=== PATIENT | female | born 1945 | race Caucasian/White ===

== ENCOUNTER 2020-05-05 07:51 | Outpatient (REF) | payer OTHER, SELFPAY | END 2020-05-05 07:52 | disposition home or self-care (01) | LOC: HO.LAB 07:51 | PROVIDERS: Visit Provider Internal Medicine | DX: Z20.828 Contact with and (suspected) exposure to other viral communicable diseases (principal) | CPT/HCPCS: C9803; U0003 ==

== ENCOUNTER → 2020-05-10 13:05 | Outpatient (BNVA) | payer OTHER, SELFPAY | PROVIDERS: PCP Internal Medicine; Referring Provider Internal Medicine; Visit Provider Internal Medicine Gastroenterology | DX: Z76.89 Persons encountering health services in other specified circumstances (principal) ==

== ENCOUNTER 2020-06-05 11:13 | Outpatient (REF) | payer OTHER, SELFPAY | END 2020-06-05 11:14 | disposition home or self-care (01) | LOC: HO.LAB 11:13 | PROVIDERS: Visit Provider Internal Medicine | DX: Z20.822 Contact with and (suspected) exposure to COVID-19 (principal) | CPT/HCPCS: 36415; C9803; U0003 ==

== ENCOUNTER → 2020-08-16 14:12 | Outpatient (BNVA) | payer OTHER, SELFPAY | PROVIDERS: PCP Internal Medicine; Visit Provider Internal Medicine Gastroenterology ==

== ENCOUNTER 2020-12-26 08:44 | Outpatient (REF) | payer OTHER, SELFPAY ==
[2020-12-26 11:52] LABS: Hematocrit 40.3 % (37-47); Hemoglobin 12.8 g/dl (12.0-16.0); Mean Corpuscular HGB Conc 31.8 g/dl (31.0-35.0); Mean Corpuscular Hemoglobin 27.6 pg (27.0-33.0); Mean Corpuscular Volume 86.9 fL (80-98); Mean Platelet Volume 9.8 fL (9.4-12.3); Platelet Count 226 X10*3/uL (160-400); Red Blood Count 4.64 X10*6/uL (4.20-5.50); Red Cell Distribution Width 13.6 % (11.0-16.0); White Blood Count 6.1 X10*3/uL (4.8-10.8)
[2020-12-26 12:14] LABS: Alanine Aminotransferase 10 U/L (0-31); Albumin Level 4.4 g/dL (3.5-5.0); Alkaline Phosphatase 89 U/L (39-117); Anion Gap 14 (12-20); Aspartate Amino Transferase 16 U/L (5-31); Bilirubin Total 0.3 mg/dL (0.0-1.0); Blood Urea Nitrogen 11 mg/dL (9-16); C Reactive Protein 0.08 mg/dL (< or = 0.50); Calcium 9.7 mg/dL (8.4-10.2); Carbon Dioxide 27 mmol/L (22-29); Chloride 105 mmol/L (96-108); Estimated Glomerular Filt Rate > 60; Glucose Random 120 mg/dL (60-115); Sodium 142 mmol/L (135-145); Total Protein 6.9 g/dL (6.5-8.0)
[2020-12-26 12:21] LABS: TSH reflex Free T4 0.49 uIU/mL (0.32-4.0)
[2020-12-26 12:57] LABS: Glucose Urine UA NEG (NEG); Leukocyte Esterase Urine TRACE (NEG); Nitrite Urine NEG (NEG); PH 5.5 (5.0-8.0); Specific Gravity - Urine 1.015 (1.005-1.025); UACC Culture Trigger YES; Urine Blood NEG (NEG); Urine Ketones NEG (NEG); Urine Protein NEG (NEG-TRACE)
[2020-12-26 12:59] LABS: Appearance Urine CLEAR; Color Urine YELLOW
[2020-12-26 13:18] LABS: RBC Urine 0 /HPF (0)
[2020-12-26 13:19] LABS: Squamous Epithelial Cell Urine 1+ /LPF; WBC Clumps Urine NOTED
[2021-01-02 13:56] LABS: Transglutaminase Ab IgG 1 U/mL; Transglutaminase IgA 1 U/mL
== END 2020-12-26 08:45 | disposition home or self-care (01) ==
LOC: HO.LAB 08:44
PROVIDERS: PCP Internal Medicine; Referring Provider Internal Medicine; Visit Provider Nurse Practitioner Family
DX: K58.9 Irritable bowel syndrome, unspecified (principal); R35.0 Frequency of micturition; R30.0 Dysuria
CPT/HCPCS: 36415; 80053; 81001; 81003; 83516; 84443; 85027; 86140; 87086

== ENCOUNTER → 2021-01-31 09:18 | Outpatient (BNVA) | payer OTHER, SELFPAY | PROVIDERS: PCP Internal Medicine; Referring Provider Internal Medicine; Visit Provider Nurse Practitioner Family ==

== ENCOUNTER → 2021-04-03 12:47 | Outpatient (BNVA) | payer OTHER, SELFPAY | PROVIDERS: PCP Internal Medicine; Referring Provider Internal Medicine; Visit Provider Nurse Practitioner Family ==

== ENCOUNTER 2021-04-24 10:24 | Day surgery (SDC) | payer OTHER, SELFPAY ==
[2021-04-19 09:41] VITALS: BMI 20.9
--- NOTE | 2021-04-23 13:09 | P.CONAN_ITS ---
Documented by User: Aylin Roberson NP 04/23/21 13:10 HPI - Anesthesia Eval Consult details Narrative: 76yo F for Colonoscopy Multiple Allergies PMFSH Active Problems Active Problems: All Active Problems (Updated 04/19/21 @ 09:38 by Janene Wilder, RN) Diabetes 1.5, managed as type 2 (Acute) IBS (irritable colon syndrome) (Acute) GERD (gastroesophageal reflux disease) (Acute) Past Medical History Medical History Anxiety Diabetes 1.5, managed as type 2 GERD (gastroesophageal reflux disease) Hx of renal calculi Hypothyroid IBS (irritable colon syndrome) PONV (postoperative nausea and vomiting) Family History Family History Father Hx of tuberculosis Mother No problems noted. Daughter Colon adenocarcinoma Surgical History Surgical History History of colonoscopy History of esophagogastroduodenoscopy (EGD) History of hysterectomy Hx of cystoscopy Hx of lithotripsy Social History Social History Household Members: Spouse Alcohol intake: never Patient Tobacco Use Status: Never used Tobacco Are you DNR?: No Advance Directives: No Advance Directives Information Provided: Yes Advance Directives on File: No Meds Allergies Allergy/AdvReac Type Severity Reaction Status Date / Time azithromycin [AZITHROMYCIN] Allergy Severe THROAT Verified 04/03/21 12:58 SWELLS codeine [Codeine] Allergy Severe THROAT Verified 04/03/21 12:58 SWELLS,RASH morphine [Morphine] Allergy Severe throat Verified 04/03/21 12:58 swelling,VOMITING nitrofurantoin Allergy Severe THROAT Verified 04/03/21 12:58 [NITROFURANTOIN] SWELLS Penicillins Allergy Severe THROAT Verified 04/03/21 12:58 SWELLS,RASH sulfamethoxazole Allergy Severe THROAT Verified 04/03/21 12:58 [From Bactrim] SWELLS,RASH trimethoprim [From Bactrim] Allergy Severe THROAT Verified 04/03/21 12:58 SWELLS,RASH celecoxib [From Celebrex] Allergy Mild RASH Verified 04/03/21 12:58 Sulfa (Sulfonamide Allergy Mild RASH Verified 04/03/21 12:58 Antibiotics) [Sulfa (Sulfonamides)] amoxicillin [Amoxicillin] Allergy Unknown RASH Verified 04/03/21 12:58 atorvastatin [From Lipitor] Allergy Unknown RASH Verified 04/03/21 12:58 erythromycin base Allergy Unknown RASH Verified 04/03/21 12:58 [From E.E.S. 400] fluticasone [FLUTICASONE] Allergy Unknown BLOOD IN Verified 04/03/21 12:58 EYES levofloxacin [LEVOFLOXACIN] Allergy Unknown HYPOGLYCEMIA, Verified 04/03/21 12:58 drop blood sugars oxycodone [From PERCOCET] Allergy Unknown RASH Verified 04/03/21 12:58 monosodium glutamate [MSG] Allergy throat Verified 04/19/21 09:36 swelling meperidine [From Demerol] AdvReac Mild VOMITING Verified 04/03/21 12:58 citalopram [CITALOPRAM] AdvReac Unknown SHAKING,HYP Verified 04/03/21 12:58 OGLYCEMIA ibuprofen [IBUPROFEN] AdvReac Unknown GI UPSET Verified 04/03/21 12:58 JALAPENO PEPPERS Allergy Severe THROAT Uncoded 04/03/21 12:58 SWELLS Shellfish Allergy Severe THROAT Uncoded 04/03/21 12:58 SWELLS Home Medications Medication Instructions Recorded Confirmed Last Taken Type docusate sodium 100 mg capsule 100 mg PO DAILY 05/11/20 04/19/21 Unknown History lorazepam 0.5 mg tablet 0.5 mg PO BID PRN 05/11/20 04/19/21 Unknown History metformin 500 mg tablet 500 mg PO BID 05/11/20 04/19/21 Unknown History pravastatin 40 mg tablet 40 mg PO BEDTIME 05/11/20 04/19/21 Unknown History levothyroxine 50 mcg tablet 50 mcg PO DAILY 01/31/21 04/19/21 Unknown History paroxetine HCl 10 mg tablet 10 mg PO DAILY 01/31/21 04/19/21 Unknown History latanoprost 0.005 % eye drops 1 drp OPHTHALMIC (EYE) BEDTIME 04/03/21 04/19/21 U nknown History famotidine 40 mg tablet 20 mg PO DAILY 04/19/21 04/19/21 Unknown History Exam Exam Date and Time: April 23, 2021 1309 Height,Weight and Vital Signs: Height 4 ft 10 in Weight 45.359 kg Pertinent Lab Results Pertinent Lab Results: Laboratory Tests 12/26/20 12/26/20 10:36 10:36 WBC 6.1 Hgb 12.8 Hct 40.3 Plt Count 226 Sodium 142 Potassium 4.0 Chloride 105 Carbon Dioxide 27 BUN 11 Creatinine 0.61 Assessment and Plan Assessment Anesthesia Assessment: Chart Reviewed Documented by User: Akash Dodd MD 04/24/21 12:25 PMFSH Past Medical History Medical History Anxiety Diabetes 1.5, managed as type 2 GERD (gastroesophageal reflux disease) Hx of renal calculi Hypothyroid IBS (irritable colon syndrome) PONV (postoperative nausea and vomiting) Family History Family History Father Hx of tuberculosis Mother No problems noted. Daughter Colon adenocarcinoma Family history of problems with anesthesia: No Surgical History Surgical History History of colonoscopy History of esophagogastroduodenoscopy (EGD) History of hysterectomy Hx of cystoscopy Hx of lithotripsy History of Problems with Anesthesia: No Social History Social History Household Members: Spouse Alcohol intake: never Patient Tobacco Use Status: Never used Tobacco Are you DNR?: No Advance Directives: No Advance Directives Information Provided: Yes Advance Directives on File: No Meds Allergies Allergy/AdvReac Type Severity Reaction Status Date / Time azithromycin [AZITHROMYCIN] Allergy Severe THROAT Verified 04/03/21 12:58 SWELLS codeine [Codeine] Allergy Severe THROAT Verified 04/03/21 12:58 SWELLS,RASH morphine [Morphine] Allergy Severe throat Verified 04/03/21 12:58 swelling,VOMITING nitrofurantoin Allergy Severe THROAT Verified 04/03/21 12:58 [NITROFURANTOIN] SWELLS Penicillins Allergy Severe THROAT Verified 04/03/21 12:58 SWELLS,RASH sulfamethoxazole Allergy Severe THROAT Verified 04/03/21 12:58 [From Bactrim] SWELLS,RASH trimethoprim [From Bactrim] Allergy Severe THROAT Verified 04/03/21 12:58 SWELLS,RASH celecoxib [From Celebrex] Allergy Mild RASH Verified 04/03/21 12:58 Sulfa (Sulfonamide Allergy Mild RASH Verified 04/03/21 12:58 Antibiotics) [Sulfa (Sulfonamides)] amoxicillin [Amoxicillin] Allergy Unknown RASH Verified 04/03/21 12:58 atorvastatin [From Lipitor] Allergy Unknown RASH Verified 04/03/21 12:58 erythromycin base Allergy Unknown RASH Verified 04/03/21 12:58 [From E.E.S. 400] fluticasone [FLUTICASONE] Allergy Unknown BLOOD IN Verified 04/03/21 12:58 EYES levofloxacin [LEVOFLOXACIN] Allergy Unknown HYPOGLYCEMIA, Verified 04/03/21 12:58 drop blood sugars oxycodone [From PERCOCET] Allergy Unknown RASH Verified 04/03/21 12:58 monosodium glutamate [MSG] Allergy throat Verified 04/19/21 09:36 swelling meperidine [From Demerol] AdvReac Mild VOMITING Verified 04/03/21 12:58 citalopram [CITALOPRAM] AdvReac Unknown SHAKING,HYP Verified 04/03/21 12:58 OGLYCEMIA ibuprofen [IBUPROFEN] AdvReac Unknown GI UPSET Verified 04/03/21 12:58 JALAPENO PEPPERS Allergy Severe THROAT Uncoded 04/03/21 12:58 SWELLS Shellfish Allergy Severe THROAT Uncoded 04/03/21 12:58 SWELLS Home Medications Medication Instructions Recorded Confirmed Last Taken Type docusate sodium 100 mg capsule 100 mg PO DAILY 05/11/20 04/19/21 Unknown History lorazepam 0.5 mg tablet 0.5 mg PO BID PRN 05/11/20 04/19/21 Unknown History metformin 500 mg tablet 500 mg PO BID 05/11/20 04/19/21 Unknown History pravastatin 40 mg tablet 40 mg PO BEDTIME 05/11/20 04/19/21 Unknown History levothyroxine 50 mcg tablet 50 mcg PO DAILY 01/31/21 04/19/21 Unknown History paroxetine HCl 10 mg tablet 10 mg PO DAILY 01/31/21 04/19/21 Unknown History latanoprost 0.005 % eye drops 1 drp OPHTHALMIC (EYE) BEDTIME 04/03/21 04/19/21 Unknown History famotidine 40 mg tablet 20 mg PO DAILY 04/19/21 04/19/21 Unknown History Exam Airway Mallampati Class: I TM Dist: >3cm Neck ROM: Full Partial: Upper and Lower Assessment and Plan Assessment Anesthesia Assessment: Anesthesia Plan Discussed Final Anesthetic Review Family History of Problems with Anesthesia: No History of Problems with Anesthesia: No NPO: Yes ASA Class: II Final Preanesthetic Review: No Changes in Pt Med Stat, Meds/Allgs Chart Reviewed, Consent Obtained/Reviewed and Anes Risks/Benef Reviewed Patient Risk: Low Procedure Risk: Low Anesthetic Plan Anesthetic Plan: MAC: Disposition: Standard PACU
[2021-04-24 11:59] VITALS: BP 149/53; PULSE 75; RESP 16; TEMP 36.3; O2SAT 99
[2021-04-24] MEDS: Lactated Ringers 1,000 ML 100 ML IVCONT (12:10)
[2021-04-24 12:14] LABS: Glucose, Whole Blood 133 mg/dL (60-115)
--- NOTE | 2021-04-24 12:57 | MHC.SHP ---
Pre-Procedural Eval Section A Date of Service: 04/24/21 The patient is an INPATIENT: No Changes since office visit: Yes Patient answered all questions; No Cold of Flu in the past 2 weeks, No New Medical Problems and No Changes in Medication The History & Physical has been completed within 30 days and I have reviewed it.: Yes Section B Chief Complaint: colon cancer Screening Details of Present Illness: Colon cancer screening, family history of colon cancer Allergies: Allergies Allergy/AdvReac Type Severity Reaction Status Date / Time azithromycin [AZITHROMYCIN] Allergy Severe THROAT Verified 04/03/21 12:58 SWELLS codeine [Codeine] Allergy Severe THROAT Verified 04/03/21 12:58 SWELLS,RASH morphine [Morphine] Allergy Severe throat Verified 04/03/21 12:58 swelling,VOMITING nitrofurantoin Allergy Severe THROAT Verified 04/03/21 12:58 [NITROFURANTOIN] SWELLS Penicillins Allergy Severe THROAT Verified 04/03/21 12:58 SWELLS,RASH sulfamethoxazole Allergy Severe THROAT Verified 04/03/21 12:58 [From Bactrim] SWELLS,RASH trimethoprim [From Bactrim] Allergy Severe THROAT Verified 04/03/21 12:58 SWELLS,RASH celecoxib [From Celebrex] Allergy Mild RASH Verified 04/03/21 12:58 Sulfa (Sulfonamide Allergy Mild RASH Verified 04/03/21 12:58 Antibiotics) [Sulfa (Sulfonamides)] amoxicillin [Amoxicillin] Allergy Unknown RASH Verified 04/03/21 12:58 atorvastatin [From Lipitor] Allergy Unknown RASH Verified 04/03/21 12:58 erythromycin base Allergy Unknown RASH Verified 04/03/21 12:58 [From E.E.S. 400] fluticasone [FLUTICASONE] Allergy Unknown BLOOD IN Verified 04/03/21 12:58 EYES levofloxacin [LEVOFLOXACIN] Allergy Unknown HYPOGLYCEMIA, Verified 04/03/21 12:58 drop blood sugars oxycodone [From PERCOCET] Allergy Unknown RASH Verified 04/03/21 12:58 monosodium glutamate [MSG] Allergy throat Verified 04/19/21 09:36 swelling meperidine [From Demerol] AdvReac Mild VOMITING Verified 04/03/21 12:58 citalopram [CITALOPRAM] AdvReac Unknown SHAKING,HYP Verified 04/03/21 12:58 OGLYCEMIA ibuprofen [IBUPROFEN] AdvReac Unknown GI UPSET Verified 04/03/21 12:58 JALAPENO PEPPERS Allergy Severe THROAT Uncoded 04/03/21 12:58 SWELLS Shellfish Allergy Severe THROAT Uncoded 04/03/21 12:58 NAYANLLS Plan I have reviewed the history and physical and performed a pertinent physical examination on my patient. No changes have occurred unless specified.
--- NOTE | 2021-04-24 12:58 | P.OP_ITS ---
Operative Note Operative Note Date of Service: 04/24/21 Narrative: Pre-op diagnosis:?Colon cancer screening, hx of colon polyps, family history of colon cancer (daughter in her late 40's) Post-op diagnosis:?other (Colon polyps, diverticulosis) Procedure:? COLONOSCOPY TILL CECUM WITH BIOPSIES, SNARE POLYTPECTOMY, SUBMUCOSAL INJECTION AND HEMOCLIP PLACEMENT Consent: Indications for the procedure and potential complications of bleeding, perforation, reaction to medications and missed diagnosis were discussed with the patient and informed consent was obtained. Instrument: Olympus PCF H 190 L variable stiffness pediatric colonoscope Monitoring: Vital signs and clinical assessment, intermittent blood pressure monitoring, continuous EKG monitoring, Pulse oximetry and Carbon Dioxide monitoring were done throughout the procedure. Colon withdrawl time was? 33 minutes. Procedure: The patient was placed in the left lateral decubitis position and pre-procedure medications were administered. After a digital rectal examination of the ano-rectum, the video colonoscope was inserted into the rectum and advanced through the colon to the cecum. The colonoscope was slowly withdrawn in a retrograde panoramic fashion and the colon mucosa was carefully examined including a retroflexed view of the rectum. Findings and interventions are described below. Procedure Difficulty: Without difficulty Findings: Terminal Ileum: Not evaluated Cecum:? A 4-5 mm sessile polyp adjacent to appendicular orifice removed with a cold bx. A 3 cms sessile polyp in the cecum adjacent to the ICV raised with 3 cc of Orise solution and removed with a hot snare.? Polypectomy site was closed with resolution clip. Ascending Colon:? Normal Transverse Colon:? A 15 mm sessile polyp at 50 cms (at site of a tattoo) removed with a hot snare. Descending Colon:? Moderate diverticulosis Sigmoid Colon:? A 10 -12 mm sessile polyp with central ulceration removed with a hot snare. Moderate diverticulosis Rectum:? Normal Ano-rectum:? Normal Colon preparation:? Good after copious irrigation Impression and Post Procedure Diagnosis: Colonoscopy Findings: One large, two medium sized and one small polyps removed Moderate diverticulosis seen in the left colon Plan: Await pathology results Patient has an appointment on 05/09/21 in the [facility] with ? Daphne St FNP-BC . Repeat Colonoscopy interval based on path results - in 6 months to check polypectomy site in the cecum if polyps are adenomatous. Above findings were reviewed with the patient and colon polyps and diverticulosis handouts were given in the discharge area Surgeon:?Radha Rain MD Anesthesia:?MAC (Wendy Wyatt CRNA) Was an Clinical Application Specialist used for this Procedure?:?Yes Clinical Application Specialist:?Carole Turpin Estimated blood loss (mL):?0 Pathology:?other ( A. CECAL POLYP ? ORISE USED? B. CECAL POLYP #2? C. TRANSVERSE COLON POLYP AT 50 CM? D. SIGMOID COLON POLYP) Condition:?stable Disposition:?PACU
[2021-04-24 14:52] VITALS: BP 96/42; PULSE 56; RESP 16; TEMP 36.4; O2SAT 98
[2021-04-24 15:07] VITALS: BP 148/61; PULSE 70; RESP 16; TEMP 36.4; O2SAT 100
== END 2021-04-24 16:25 | disposition home or self-care (01) ==
PROVIDERS: PCP Internal Medicine; Visit Provider Internal Medicine Gastroenterology
PROC: 0DJD8ZZ Inspection of Lower Intestinal Tract, Via Natural or Artificial Opening Endoscopic (ICD-10-PCS; CPT 45378; principal; 2021-04-24 12:10)
DX: Z12.11 Encounter for screening for malignant neoplasm of colon (principal); Z86.010 Personal history of colon polyps; Z80.0 Family history of malignant neoplasm of digestive organs; D12.0 Benign neoplasm of cecum; D12.3 Benign neoplasm of transverse colon; K63.5 Polyp of colon; K57.30 Diverticulosis of large intestine without perforation or abscess without bleeding; K58.9 Irritable bowel syndrome, unspecified; K21.9 Gastro-esophageal reflux disease without esophagitis; E13.9 Other specified diabetes mellitus without complications; Z79.84 Long term (current) use of oral hypoglycemic drugs; Z88.0 Allergy status to penicillin; Z88.1 Allergy status to other antibiotic agents; Z88.2 Allergy status to sulfonamides; Z88.8 Allergy status to other drugs, medicaments and biological substances; Z87.442 Personal history of urinary calculi
CPT/HCPCS: 45385; 45380; 45381; 82947; 88305

== ENCOUNTER → 2021-05-09 10:13 | Outpatient (BNVA) | payer OTHER, SELFPAY | PROVIDERS: PCP Internal Medicine; Referring Provider Internal Medicine; Visit Provider Nurse Practitioner Family ==

== ENCOUNTER → 2021-09-04 10:41 | Outpatient (BNVA) | payer BC, SELFPAY | PROVIDERS: PCP Internal Medicine; Visit Provider Nurse Practitioner Family | DX: Z13.89 Encounter for screening for other disorder (principal) ==

== ENCOUNTER 2021-11-23 09:18 | Day surgery (SDC) | payer MEDICARE, SELFPAY ==
[2021-11-16 10:34] VITALS: BMI 21.5
--- NOTE | 2021-11-22 13:38 | HO.ANESPROP2 ---
Documented by User: Aylin Roberson NP 11/22/21 13:39 HPI - Anesthesia Eval Consult details Narrative: 76yo F for Colonoscopy Multiple Allergies s/p colo 04/2021 with MAC PMFSH Active Problems Active Problems: All Active Problems (Updated 04/19/21 @ 09:38 by Janene Wilder, ARIELLE) GERD (gastroesophageal reflux disease) (Acute) IBS (irritable colon syndrome) (Acute) Diabetes 1.5, managed as type 2 (Acute) Past Medical History Medical History Anxiety Hx of renal calculi Hypothyroid PONV (postoperative nausea and vomiting) Family History Family History Father Hx of tuberculosis Mother No problems noted. Daughter Colon adenocarcinoma Family history of problems with anesthesia: No Surgical History Surgical History (Updated 11/16/21 @ 10:24 by Angela Samayoa RN) History of colonoscopy History of esophagogastroduodenoscopy (EGD) History of hysterectomy Hx of cystoscopy Hx of lithotripsy History of Problems with Anesthesia: No Social History Social History Household Members: Spouse Alcohol intake: never Patient Tobacco Use Status: Never used Tobacco Use of substances other than those prescribed or required for medical reasons: No Have you been hit, kicked, punched, or otherwise hurt by someone within the past year? If so, by whom?: No Are you DNR?: No Advance Directives: No Advance Directives Information Provided: Yes Recently lost weight without trying: No Nutrition Risks: No Nutritional Risk Patient : No Meds Allergies Allergy/AdvReac Type Severity Reaction Status Date / Time azithromycin [AZITHROMYCIN] Allergy Severe THROAT Verified 09/04/21 10:50 SWELLS codeine [Codeine] Allergy Severe THROAT Verified 09/04/21 10:50 SWELLS,RASH monosodium glutamate [MSG] Allergy Severe throat Verified 11/16/21 10:28 swelling morphine [Morphine] Allergy Severe throat Verified 09/04/21 10:50 swelling,VOMITING nitrofurantoin Allergy Severe THROAT Verified 09/04/21 10:50 [NITROFURANTOIN] SWELLS Penicillins Allergy Severe THROAT Verified 09/04/21 10:50 SWELLS,RASH sulfamethoxazole Allergy Severe THROAT Verified 09/04/21 10:50 [From Bactrim] SWELLS,RASH trimethoprim [From Bactrim] Allergy Severe THROAT Verified 09/04/21 10:50 SWELLS,RASH fluticasone [FLUTICASONE] Allergy Intermediate BLOOD IN Verified 11/16/21 10:28 EYES levofloxacin [LEVOFLOXACIN] Allergy Intermediate HYPOGLYCEMIA, Verified 11/16/21 10:28 drop blood sugars amoxicillin [Amoxicillin] Allergy Mild RASH Verified 11/16/21 10:28 atorvastatin [From Lipitor] Allergy Mild RASH Verified 11/16/21 10:28 celecoxib [From Celebrex] Allergy Mild RASH Verified 09/04/21 10:50 erythromycin base Allergy Mild RASH Verified 11/16/21 10:28 [From E.E.S. 400] oxycodone [From PERCOCET] Allergy Mild RASH Verified 11/16/21 10:28 Sulfa (Sulfonamide Allergy Mild RASH Verified 09/04/21 10:50 Antibiotics) [Sulfa (Sulfonamides)] citalopram [CITALOPRAM] AdvReac Intermediate SHAKING,HYP Verified 11/16/21 10:28 OGLYCEMIA ibuprofen [IBUPROFEN] AdvReac Intermediate GI UPSET Verified 11/16/21 10:28 meperidine [From Demerol] AdvReac Mild VOMITING Verified 09/04/21 10:50 JALAPENO PEPPERS Allergy Severe THROAT Uncoded 09/04/21 10:50 SWELLS Shellfish Allergy Severe THROAT Uncoded 09/04/21 10:50 SWELLS Home Medications Medication Instructions Recorded Confirmed Last Taken Type docusate sodium 100 mg capsule 100 mg PO DAILY 05/11/20 04/19/21 Unknown History lorazepam 0.5 mg tablet 0.5 mg PO BID PRN Anxiety 05/11/20 04/19/21 Unknown History metformin 500 mg tablet 500 mg PO BID 05/11/20 04/19/21 Unknown History pravastatin 40 mg tablet 40 mg PO BEDTIME 05/11/20 04/19/21 Unknown History levothyroxine 50 mcg tablet 50 mcg PO DAILY 01/31/21 04/19/21 Unknown History paroxetine HCl 10 mg tablet 10 mg PO DAILY 01/31/21 04/19/21 Unknown History latanoprost 0.005 % eye drops 1 drp ophthalmic (eye) BEDTIME 04/03/21 04/19/21 Unknown History blood sugar diagnostic (Contour #10 ea 05/09/21 Unknown History Next Test Strips) paroxetine HCl 20 mg tablet 20 mg PO DAILY 09/04/21 Unknown History Exam Exam Date and Time: November 22, 2021 1338 Height,Weight and Vital Signs: Height 4 ft 10 in Weight 46.72 kg Assessment and Plan Assessment Anesthesia Assessment: Chart Reviewed Final Anesthetic Review Family History of Problems with Anesthesia: No History of Problems with Anesthesia: No Documented by User: Swapna Grewal MD 11/23/21 09:46 PMFSH Past Medical History Medical History Anxiety Hx of renal calculi Hypothyroid PONV (postoperative nausea and vomiting) Family History Family History Father Hx of tuberculosis Mother No problems noted. Daughter Colon adenocarcinoma Surgical History Surgical History (Updated 11/16/21 @ 10:24 by Angela Samayoa RN) History of colonoscopy History of esophagogastroduodenoscopy (EGD) History of hysterectomy Hx of cystoscopy Hx of lithotripsy Social History Social History Household Members: Spouse Alcohol intake: never Patient Tobacco Use Status: Never used Tobacco Use of substances other than those prescribed or required for medical reasons: No Have you been hit, kicked, punched, or otherwise hurt by someone within the past year? If so, by whom?: No Are you DNR?: No Advance Directives: No Advance Directives Information Provided: Yes Recently lost weight without trying: No Nutrition Risks: No Nutritional Risk Patient : No Meds Allergies Allergy/AdvReac Type Severity Reaction Status Date / Time azithromycin [AZITHROMYCIN] Allergy Severe THROAT Verified 09/04/21 10:50 SWELLS codeine [Codeine] Allergy Severe THROAT Verified 09/04/21 10:50 SWELLS,RASH monosodium glutamate [MSG] Allergy Severe throat Verified 11/16/21 10:28 swelling morphine [Morphine] Allergy Severe throat Verified 09/04/21 10:50 swelling,VOMITING nitrofurantoin Allergy Severe THROAT Verified 09/04/21 10:50 [NITROFURANTOIN] SWELLS Penicillins Allergy Severe THROAT Verified 09/04/21 10:50 SWELLS,RASH sulfamethoxazole Allergy Severe THROAT Verified 09/04/21 10:50 [From Bactrim] SWELLS,RASH trimethoprim [From Bactrim] Allergy Severe THROAT Verified 09/04/21 10:50 SWELLS,RASH fluticasone [FLUTICASONE] Allergy Intermediate BLOOD IN Verified 11/16/21 10:28 EYES levofloxacin [LEVOFLOXACIN] Allergy Intermediate HYPOGLYCEMIA, Verified 11/16/21 10:28 drop blood sugars amoxicillin [Amoxicillin] Allergy Mild RASH Verified 11/16/21 10:28 atorvastatin [From Lipitor] Allergy Mild RASH Verified 11/16/21 10:28 celecoxib [From Celebrex] Allergy Mild RASH Verified 09/04/21 10:50 erythromycin base Allergy Mild RASH Verified 11/16/21 10:28 [From E.E.S. 400] oxycodone [From PERCOCET] Allergy Mild RASH Verified 11/16/21 10:28 Sulfa (Sulfonamide Allergy Mild RASH Verified 09/04/21 10:50 Antibiotics) [Sulfa (Sulfonamides)] citalopram [CITALOPRAM] AdvReac Intermediate SHAKING,HYP Verified 11/16/21 10:28 OGLYCEMIA ibuprofen [IBUPROFEN] AdvReac Intermediate GI UPSET Verified 11/16/21 10:28 meperidine [From Demerol] AdvReac Mild VOMITING Verified 09/04/21 10:50 JALAPENO PEPPERS Allergy Severe THROAT Uncoded 09/04/21 10:50 SWELLS Shellfish Allergy Severe THROAT Uncoded 09/04/21 10:50 SWELLS Home Medications Medication Instructions Recorded Confirmed Last Taken Type docusate sodium 100 mg capsule 100 mg PO DAILY 05/11/20 04/19/21 Unknown History lorazepam 0.5 mg tablet 0.5 mg PO BID PRN Anxiety 05/11/20 04/19/21 Unknown History metformin 500 mg tablet 500 mg PO BID 05/11/20 04/19/21 Unknown History pravastatin 40 mg tablet 40 mg PO BEDTIME 05/11/20 04/19/21 Unknown History levothyroxine 50 mcg tablet 50 mcg PO DAILY 01/31/21 04/19/21 Unknown History paroxetine HCl 10 mg tablet 10 mg PO DAILY 01/31/21 04/19/21 Unknown History latanoprost 0.005 % eye drops 1 drp ophthalmic (eye) BEDTIME 04/03/21 04/19/21 Unknown History blood sugar diagnostic (Contour #10 ea 05/09/21 Unknown History Next Test Strips) paroxetine HCl 20 mg tablet 20 mg PO DAILY 09/04/21 Unknown History Exam Airway Mallampati Class: II TM Dist: >3cm Neck ROM: Full Partial: Upper Heart: rrr Lungs: cta Assessment and Plan Final Anesthetic Review NPO: Yes ASA Class: III Final Preanesthetic Review: No Changes in Pt Med Stat, Meds/Allgs Chart Reviewed and Consent Obtained/Reviewed Patient Risk: Intermediate Procedure Risk: Intermediate Anesthetic Plan Anesthetic Plan: MAC: Disposition: Standard PACU
[2021-11-23 09:39] VITALS: BP 125/46; PULSE 81; RESP 17; TEMP 36.5; O2SAT 97; BMI 21.5
[2021-11-23 09:40] LABS: Glucose, Whole Blood 136 mg/dL (60-115)
[2021-11-23] MEDS: Lactated Ringers 1,000 ML 100 ML IVCONT (09:45)
--- NOTE | 2021-11-23 09:58 | MHC.SHP ---
Pre-Procedural Eval Section A Date of Service: 11/23/21 The patient is an INPATIENT: No The History & Physical has been completed within 30 days and I have reviewed it.: No Section B Chief Complaint: Colon cancer screen, history of colon polyps Details of Present Illness: Colon cancer screening, history of colon polyps Relevant Family History (Specify if Yes): Yes Relevant Social History: None Present Medications: see Short Stay Collaborative assessment Medical History: Significant History (Anxiety Diabetes 1.5, managed as type 2 GERD (gastroesophageal reflux disease) Hx of renal calculi Hypothyroid IBS (irritable colon syndrome) PONV (postoperative nausea and vomiting)) History of Previous Operations: Relevant previous surgery/procedure and date(s) (History of colonoscopy History of esophagogastroduodenoscopy (EGD) History of hysterectomy Hx of cystoscopy Hx of lithotripsy) Allergies: Allergies Allergy/AdvReac Type Severity Reaction Status Date / Time azithromycin [AZITHROMYCIN] Allergy Severe THROAT Verified 09/04/21 10:50 SWELLS codeine [Codeine] Allergy Severe THROAT Verified 09/04/21 10:50 SWELLS,RASH monosodium glutamate [MSG] Allergy Severe throat Verified 11/16/21 10:28 swelling morphine [Morphine] Allergy Severe throat Verified 09/04/21 10:50 swelling,VOMITING nitrofurantoin Allergy Severe THROAT Verified 09/04/21 10:50 [NITROFURANTOIN] SWELLS Penicillins Allergy Severe THROAT Verified 09/04/21 10:50 SWELLS,RASH sulfamethoxazole Allergy Severe THROAT Verified 09/04/21 10:50 [From Bactrim] SWELLS,RASH trimethoprim [From Bactrim] Allergy Severe THROAT Verified 09/04/21 10:50 SWELLS,RASH fluticasone [FLUTICASONE] Allergy Intermediate BLOOD IN Verified 11/16/21 10:28 EYES levofloxacin [LEVOFLOXACIN] Allergy Intermediate HYPOGLYCEMIA, Verified 11/16/21 10:28 drop blood sugars amoxicillin [Amoxicillin] Allergy Mild RASH Verified 11/16/21 10:28 atorvastatin [From Lipitor] Allergy Mild RASH Verified 11/16/21 10:28 celecoxib [From Celebrex] Allergy Mild RASH Verified 09/04/21 10:50 erythromycin base Allergy Mild RASH Verified 11/16/21 10:28 [From E.E.S. 400] oxycodone [From PERCOCET] Allergy Mild RASH Verified 11/16/21 10:28 Sulfa (Sulfonamide Allergy Mild RASH Verified 09/04/21 10:50 Antibiotics) [Sulfa (Sulfonamides)] citalopram [CITALOPRAM] AdvReac Intermediate SHAKING,HYP Verified 11/16/21 10:28 OGLYCEMIA ibuprofen [IBUPROFEN] AdvReac Intermediate GI UPSET Verified 11/16/21 10:28 meperidine [From Demerol] AdvReac Mild VOMITING Verified 09/04/21 10:50 JALAPENO PEPPERS Allergy Severe THROAT Uncoded 09/04/21 10:50 SWELLS Shellfish Allergy Severe THROAT Uncoded 09/04/21 10:50 SWELLS Review of Systems Sugical H&P ROS: Negative: Constitution, Cardiovascular, Respiratory and Gastrointestinal Exam Surgical H&P Exam: Normal: Heart, Normal: Lungs, Normal: Extremities and Normal: Abdomen Plan Diagnosis/Plan: Unchanged I have reviewed the history and physical and performed a pertinent physical examination on my patient. No changes have occurred unless specified.
--- NOTE | 2021-11-23 09:59 | P.BOP_ITS ---
Brief Operative Note Date of Service: 11/23/21 Pre-op diagnosis: Colon cancer screening, history of colon polyps Post-op diagnosis: other (Colon polyps, diverticulosis, hemorrhoids) Procedure: COLONOSCOPY TILL CECUM WITH BIOPSIES Consent: Indications for the procedure and potential complications of bleeding, perforation, reaction to medications and missed diagnosis were discussed with the patient and informed consent was obtained. Instrument: Olympus PCF H 190 L variable stiffness pediatric colonoscope Monitoring: Vital signs and clinical assessment, intermittent blood pressure monitoring, continuous EKG monitoring, Pulse oximetry and Carbon Dioxide monitoring were done throughout the procedure. Colon withdrawl time was 21 minutes. Procedure: The patient was placed in the left lateral decubitis position and pre-procedure medications were administered. After a digital rectal examination of the ano-rectum, the video colonoscope was inserted into the rectum and advanced through the colon to the cecum. The colonoscope was slowly withdrawn in a retrograde panoramic fashion and the colon mucosa was carefully examined including a retroflexed view of the rectum. Findings and interventions are described below. Procedure Difficulty: Without difficulty Findings: Terminal Ileum: Not evaluated Cecum: Normal. No recurrent/residual polyp seen. Prominent ICV - biopsies were obtained from proximal and distal lips of ICV. Ascending Colon: Normal Transverse Colon: Polypectomy site examined at 50 cms (at site of a tattoo) and no residual/recurrent polyp seen - biopsies were obtained Descending Colon: Moderate diverticulosis Sigmoid Colon: Two 4-6 mm diminutive appearing polyps removed with a cold bx. Severe diverticulosis with luminal narrowing Rectum: Normal Ano-rectum: Moderate internal hemorrhoids Colon preparation: Good after some irrigation Impression and Post Procedure Diagnosis: Colonoscopy Findings: Two small polyps removed Moderate to severe diverticulosis seen in the left colon Moderate hemorrhoids on retroflexed exam. Plan: Await pathology results Patient has an appointment on 12/07/21 in the [facility] with Daphne St FNP- [facility]. Repeat Colonoscopy interval based on path results - in 3 years if biopsies are normal due to hx of adenomatous colon polyps. Above findings were reviewed with the patient and colon polyps and diverticulosis handouts were given in the discharge area Surgeon: Radha Rain MD Anesthesia: MAC (Dr Tinajero) Was an Controls Engineer used for this Procedure?: Yes Controls Engineer: Nishant Jaimes Estimated blood loss (mL): 0 Pathology: other ( A- DISTAL LIP ILEO CECAL VALVE BXS B- PROXIMAL LIP ILEO CECAL VALVE BXS C- COLON BXS AT 50CM R/O POLYP D- SIGMOID COLON POLYPS) Condition: stable Disposition: PACU
[2021-11-23 11:10] VITALS: BP 116/49; PULSE 72; RESP 16; TEMP 36.4; O2SAT 97
[2021-11-23 11:25] VITALS: BP 124/54; PULSE 69; RESP 16; TEMP 36.4; O2SAT 97
--- NOTE | 2021-11-23 18:02 | W.PM.OPN ---
Operative Note Operative Note Date of Service: 11/23/21 Narrative: Pre-op diagnosis: Colon cancer screening, history of colon polyps (to check polypectomy sites in the ascending and transverse colon) Post-op diagnosis:?other (Colon polyps, diverticulosis, hemorrhoids) Procedure: COLONOSCOPY TILL CECUM WITH BIOPSIES Consent: Indications for the procedure and potential complications of bleeding, perforation, reaction to medications and missed diagnosis were discussed with the patient and informed consent was obtained. Instrument: Olympus PCF H 190 L variable stiffness pediatric colonoscope Monitoring: Vital signs and clinical assessment, intermittent blood pressure monitoring, continuous EKG monitoring, Pulse oximetry and Carbon Dioxide monitoring were done throughout the procedure. Colon withdrawl time was 21 minutes. Procedure: The patient was placed in the left lateral decubitis position and pre-procedure medications were administered. After a digital rectal examination of the ano-rectum, the video colonoscope was inserted into the rectum and advanced through the colon to the cecum. The colonoscope was slowly withdrawn in a retrograde panoramic fashion and the colon mucosa was carefully examined including a retroflexed view of the rectum. Findings and interventions are described below. Procedure Difficulty: Without difficulty Findings: Terminal Ileum: Not evaluated Cecum:? Normal.? No recurrent/residual polyp seen.? Prominent ICV - biopsies were obtained from proximal and distal lips of ICV. Ascending Colon:? Normal Transverse Colon:? Polypectomy site examined at 50 cms (at site of a tattoo) and no residual/recurrent polyp seen - biopsies were obtained Descending Colon:? Moderate diverticulosis Sigmoid Colon:? ? Two 4-6 mm diminutive appearing polyps removed with a cold bx. Severe diverticulosis with luminal narrowing Rectum:? Normal Ano-rectum:? Moderate internal hemorrhoids Colon preparation:? Good after some irrigation Impression and Post Procedure Diagnosis: Colonoscopy Findings: Two small polyps removed Moderate to severe diverticulosis seen in the left colon Moderate hemorrhoids on retroflexed exam. Plan: Await pathology results Patient has an appointment on 12/07/21 in the GI Clinic with Daphne St FNP-[facility]. Repeat Colonoscopy interval based on path results - in 3 years if biopsies are normal due to hx of adenomatous colon polyps. Above findings were reviewed with the patient and colon polyps and diverticulosis handouts were given in the discharge area Surgeon: Radha Rain MD Anesthesia:?MAC (Dr Tinajero) Was an Dry Clipper Tender used for this Procedure?:?Yes Dry Clipper Tender:?Nishant Jaimes Estimated blood loss (mL):?0 Pathology:?other ( A- DISTAL LIP ILEO CECAL VALVE BXS? B- PROXIMAL LIP ILEO CECAL VALVE BXS? C- COLON BXS AT 50CM? R/O POLYP? D- SIGMOID COLON POLYPS) Condition:?stable Disposition:?PACU
== END 2021-11-23 11:58 | disposition home or self-care (01) ==
PROVIDERS: PCP Internal Medicine; Visit Provider Internal Medicine Gastroenterology
PROC: 0DJD8ZZ Inspection of Lower Intestinal Tract, Via Natural or Artificial Opening Endoscopic (ICD-10-PCS; CPT 45378; principal; 2021-11-23 10:20)
DX: K63.5 Polyp of colon (principal); Z86.010 Personal history of colon polyps; Z80.0 Family history of malignant neoplasm of digestive organs; K57.30 Diverticulosis of large intestine without perforation or abscess without bleeding; K64.8 Other hemorrhoids; K58.2 Mixed irritable bowel syndrome; K21.9 Gastro-esophageal reflux disease without esophagitis; F32.A Depression, unspecified; E03.9 Hypothyroidism, unspecified; E13.9 Other specified diabetes mellitus without complications; Z79.84 Long term (current) use of oral hypoglycemic drugs; Z88.0 Allergy status to penicillin; Z88.1 Allergy status to other antibiotic agents; Z88.2 Allergy status to sulfonamides; Z88.8 Allergy status to other drugs, medicaments and biological substances; Z87.442 Personal history of urinary calculi
CPT/HCPCS: 45380; 82947; 88305; J2250; J2405

== ENCOUNTER → 2021-12-07 09:58 | Outpatient (BNVA) | payer MEDICARE, SELFPAY | PROVIDERS: PCP Internal Medicine; Visit Provider Nurse Practitioner Family | DX: K59.01 Slow transit constipation (principal); K58.2 Mixed irritable bowel syndrome; K21.9 Gastro-esophageal reflux disease without esophagitis | CPT/HCPCS: 99212 ==

== ENCOUNTER → 2022-03-12 10:49 | Outpatient (BNVA) | payer MEDICARE, SELFPAY | PROVIDERS: PCP Internal Medicine; Referring Provider Internal Medicine; Visit Provider Nurse Practitioner Family | DX: K21.9 Gastro-esophageal reflux disease without esophagitis (principal); K58.2 Mixed irritable bowel syndrome | CPT/HCPCS: 99212 ==

== ENCOUNTER → 2022-10-09 11:38 | Outpatient (BNVA) | payer MEDICARE, SELFPAY | PROVIDERS: PCP Internal Medicine; Visit Provider Nurse Practitioner Family | DX: K21.9 Gastro-esophageal reflux disease without esophagitis (principal); K58.2 Mixed irritable bowel syndrome | CPT/HCPCS: 99212 ==

== ENCOUNTER 2023-05-23 11:01 | Outpatient (AMB) | payer MEDICARE, SELFPAY ==
[2023-05-23 11:09] VITALS: BP 134/62; PULSE 68; BMI 23.4
--- NOTE | 2023-05-23 11:09 | MHC.OFFVIS ---
Intake Vital Signs 05/23/23 11:09 Height 4 ft 10 in Weight 111 lb 15.917 oz BMI 23.4 BP 134/62 Blood Pressure Location Rt brachial Position Sitting Pulse 68 Pulse Source Pulse Oximeter Intake Visit Reasons: 6 month follow up Intake Note: Pt presents to the office today for a 6 month follow up. Pt states she is feeling okay. Pt states she hasnt had any issues with GERD lately and states she has had constipation this week but usually it is a lot better than before. Allergies azithromycin [AZITHROMYCIN] Allergy (Severe, Verified 05/23/23 11:11) THROAT SWELLS codeine [Codeine] Allergy (Severe, Verified 05/23/23 11:11) THROAT SWELLS,RASH monosodium glutamate [MSG] Allergy (Severe, Verified 05/23/23 11:11) throat swelling morphine [Morphine] Allergy (Severe, Verified 05/23/23 11:11) throat swelling,VOMITING nitrofurantoin [NITROFURANTOIN] Allergy (Severe, Verified 05/23/23 11:11) THROAT SWELLS Penicillins Allergy (Severe, Verified 05/23/23 11:11) THROAT SWELLS,RASH sulfamethoxazole [From Bactrim] Allergy (Severe, Verified 05/23/23 11:11) THROAT SWELLS,RASH trimethoprim [From Bactrim] Allergy (Severe, Verified 05/23/23 11:11) THROAT SWELLS,RASH fluticasone [FLUTICASONE] Allergy (Intermediate, Verified 05/23/23 11:11) BLOOD IN EYES levofloxacin [LEVOFLOXACIN] Allergy (Intermediate, Verified 05/23/23 11:11) HYPOGLYCEMIA, drop blood sugars amoxicillin [Amoxicillin] Allergy (Mild, Verified 05/23/23 11:11) RASH atorvastatin [From Lipitor] Allergy (Mild, Verified 05/23/23 11:11) RASH celecoxib [From Celebrex] Allergy (Mild, Verified 05/23/23 11:11) RASH erythromycin base [From E.E.S. 400] Allergy (Mild, Verified 05/23/23 11:11) RASH oxycodone [From PERCOCET] Allergy (Mild, Verified 05/23/23 11:11) RASH Sulfa (Sulfonamide Antibiotics) [Sulfa (Sulfonamides)] Allergy (Mild, Verified 05/23/23 11:11) RASH citalopram [CITALOPRAM] Adverse Reaction (Intermediate, Verified 05/23/23 11:11) SHAKING,HYPOGLYCEMIA ibuprofen [IBUPROFEN] Adverse Reaction (Intermediate, Verified 05/23/23 11:11) GI UPSET meperidine [From Demerol] Adverse Reaction (Mild, Verified 05/23/23 11:11) VOMITING JALAPENO PEPPERS Allergy (Severe, Uncoded 05/23/23 11:11) THROAT SWELLS Shellfish Allergy (Severe, Uncoded 05/23/23 11:11) THROAT SWELLS HPI 6 month follow up HPI Details LAST VISIT: GERD (gastroesophageal reflux disease) Continue with famotidine. Patient is aware to avoid dietary triggers. Patient does not eat late at night. Continue staying upright for minimum 3 hours after meals. Patient reports that her blood sugars are under control. No longer is taking insulin due to hypoglycemia. Patient states that her blood sugars have been between 110-120 in the morning. IBS (irritable colon syndrome) Continue elimination diet if necessary. Patient see to have a good routine about what foods she should and should not be to avoid her symptoms. She is moving her bowels without any issues. If that very have normalized. Moves her bowels every day. Patient reports that she only uses Colace if she needs to. Patient will be seeing her PCP sometimes next month. Please add vitamin-D level, B12 and folate to her labs if possible. Start taking vitamin D levels daily. Patient is not in the sun much even in the summer. I will see patient in 6 months, sooner on as needed basis. Patient is agreeable to this plan and verbalizes understanding of instructions. She was given the opportunity to ask questions and all questions answered. ? Thank you for allowing me to participate in her care Plan Medications New cholecalciferol (vitamin D3) 50 mcg PO DAILY 90 caps 3RF R79.89 - Other specified abnormal findings of blood chemistry TODAY'S VISIT: Patient is here today for follow-up. Patient is accompanied by her . Patient reports that she has been feeling well. Denies any GI concerning symptoms. States that peptic is controlling her he. Patient states that she has gained few lb from last visit. Patient has good appetite. Denies melena, hematochezia, unintentional weight loss or ribbon like stools. Patient denies any dyspepsia, dysphagia or odynophagia. Mild constipation last week, however reports that she is feeling better. Still taking Colace daily to help her move her bowels. [facility] Medical History PONV (postoperative nausea and vomiting) Anxiety Hx of renal calculi Diabetes 1.5, managed as type 2 Hypothyroid IBS (irritable colon syndrome) GERD (gastroesophageal reflux disease) Surgical History Hx of lithotripsy Hx of cystoscopy History of esophagogastroduodenoscopy (EGD) History of hysterectomy History of colonoscopy Family History Father Hx of tuberculosis Mother No problems noted. Daughter Colon adenocarcinoma Social History Household Members: Spouse Alcohol intake: never Patient Tobacco Use Status: Never used Tobacco Review of Systems Const Denies weight gain and Denies weight loss ENT Reports no additional complaints, Denies dysphagia and Denies odynophagia Card Reports no additional complaints Resp Reports no additional complaints GI Denies abdominal pain, Denies belching, Denies melena, Denies bloating, Denies change in bowel habits, Denies dysphagia, Denies excessive flatus, Denies dyspepsia, Denies heartburn, Denies diarrhea, Denies loose stools, Denies nausea, Denies odynophagia and Denies vomiting Musc Reports no additional complaints Neuro Reports no additional complaints Psych Reports no additional complaints Endo Reports no additional complaints Physical Exam Vital Signs: Last Vital Signs Pulse 68 05/23/23 11:09 BP 134/62 05/23/23 11:09 BMI result Body Mass Index 23.4 Const General: healthy appearing, no acute distress and well developed Nutritional Appearance: well nourished Orientation/consciousness: patient oriented x3 HEENT Head: Yes normal to inspection, Yes normocephalic and Yes atraumatic Face and sinus: Yes normal facial exam Mouth: Normal oral and palatal mucosa present Throat: Yes posterior oropharynx normal, Yes tonsils normal and Yes uvula midline Eyes General: appearance normal, both eyes and all related structures Neck Neck: Yes normal visual inspection, Yes full ROM and Yes trachea midline Thyroid: Thyroid normal Resp Effort & Inspection: normal respiratory effort, able to speak in complete sentences, no tracheal deviation and symmetric chest movement Auscultation: clear to auscultation bilaterally Cardio Rate: regular rate GI Inspection: Yes normal to inspection and No distended Palpation (GI): Soft to palpation, not firm, nontender and No hepatosplenomegaly present Auscultation: normal bowel sounds General: Yes no CVA tenderness Back/Spine/Pelvis Back: no CVA tenderness Skin General skin exam: elasticity normal, turgor normal and dry skin Neuro General: patient oriented x3 Psych Appearance: grossly normal Mental Status: mental status grossly normal Affect: normal affect Thought content: Normal thought content present Assessment & Plan Assessment & Plan (1) GERD (gastroesophageal reflux disease): Code(s): K21.9 - Gastro-esophageal reflux disease without esophagitis Qualifiers: Esophagitis presence: without esophagitis Qualified Code(s): K21.9 - Gastro-esophageal reflux disease without esophagitis (2) IBS (irritable colon syndrome): Code(s): K58.9 - Irritable bowel syndrome without diarrhea Qualifiers: Irritable bowel syndrome type: with both diarrhea and constipation Qualified Code(s): K58.2 - Mixed irritable bowel syndrome (3) Constipation: Code(s): K59.00 - Constipation, unspecified Qualifiers: Constipation type: slow transit constipation Qualified Code(s): K59.01 - Slow transit constipation Plan Patient will continue taking Pepcid daily. Discussed with patient avoiding dietary triggers and late night snacking. Staying upright for minimal 3 hours after meals discussed with patient. Colonoscopy will be due in October of 2024, sooner if clinically necessary. Patient denies any melena, hematochezia, unintentional weight loss or ribbon like stools. Continue taking Colace. Patient will return in the office in 6 months, sooner on as needed basis. Patient is agreeable to this plan and verbalizes understanding of instructions. She was given the opportunity to ask questions and all questions answered Thank you for allowing me to participate in her care Medications: Refilled docusate sodium 100 mg PO DAILY 90 caps 0RF K59.00 - Constipation, unspecified famotidine (Pepcid) 20 mg PO DAILY 90 tabs 3RF K21.9 - Gastro-esophageal reflux disease without esophagitis Coding Level of Care Code Est Pt Level 3 (36302) Diagnoses Gastroesophageal reflux disease without esophagitis K21.9 Esophagitis presence: without esophagitis Irritable bowel syndrome with both constipation and diarrhea K58.2 Irritable bowel syndrome type: with both diarrhea and constipation Slow transit constipation K59.01 Constipation type: slow transit constipation Time Spent (min) 25 Comment 15 minutes spent with patient and additional 10 minutes spent reviewing her records
== END 2023-05-23 11:44 | disposition home or self-care (01) ==
PROVIDERS: PCP Internal Medicine; Visit Provider Nurse Practitioner Family
DX: K21.9 Gastro-esophageal reflux disease without esophagitis (principal); K58.2 Mixed irritable bowel syndrome; K59.01 Slow transit constipation
CPT/HCPCS: 99213

== ENCOUNTER → 2023-05-23 11:01 | Outpatient (BNVA) | payer MEDICARE, SELFPAY | PROVIDERS: PCP Internal Medicine; Visit Provider Nurse Practitioner Family | DX: K21.9 Gastro-esophageal reflux disease without esophagitis (principal); K58.2 Mixed irritable bowel syndrome; K59.01 Slow transit constipation | CPT/HCPCS: 99212 ==

== ENCOUNTER 2023-10-06 11:10 | Outpatient (AMB) | payer MEDICARE, SELFPAY ==
--- NOTE | 2023-10-06 11:45 | A.OFFVIS_ITS ---
Vital Signs 10/06/23 11:46 Height 4 ft 10 in Weight 110 lb BMI 23.0 BP 119/69 Blood Pressure Location Lt brachial Position Sitting Pulse 71 Intake Visit Reasons: Diarrhea/Constipation Intake Note: Patient follow up for Diarrhea/Constipation. Patient cc: between diarrhea and Constipation, she went to the [facility] with a brain stroke. Also patient have an injury on her right arm and is waiting for ortho appt and is really painful. Denies any other GI issues. Field Radio Technician Required: No Accompanied by: Spouse Allergies azithromycin [AZITHROMYCIN] Allergy (Severe, Verified 10/06/23 11:44) THROAT SWELLS codeine [Codeine] Allergy (Severe, Verified 10/06/23 11:44) THROAT SWELLS,RASH monosodium glutamate [MSG] Allergy (Severe, Verified 10/06/23 11:44) throat swelling morphine [Morphine] Allergy (Severe, Verified 10/06/23 11:44) throat swelling,VOMITING nitrofurantoin [NITROFURANTOIN] Allergy (Severe, Verified 10/06/23 11:44) THROAT SWELLS Penicillins Allergy (Severe, Verified 10/06/23 11:44) THROAT SWELLS,RASH sulfamethoxazole [From Bactrim] Allergy (Severe, Verified 10/06/23 11:44) THROAT SWELLS,RASH trimethoprim [From Bactrim] Allergy (Severe, Verified 10/06/23 11:44) THROAT SWELLS,RASH fluticasone [FLUTICASONE] Allergy (Intermediate, Verified 10/06/23 11:44) BLOOD IN EYES levofloxacin [LEVOFLOXACIN] Allergy (Intermediate, Verified 10/06/23 11:44) HYPOGLYCEMIA, drop blood sugars amoxicillin [Amoxicillin] Allergy (Mild, Verified 10/06/23 11:44) RASH atorvastatin [From Lipitor] Allergy (Mild, Verified 10/06/23 11:44) RASH celecoxib [From Celebrex] Allergy (Mild, Verified 10/06/23 11:44) RASH erythromycin base [From E.E.S. 400] Allergy (Mild, Verified 10/06/23 11:44) RASH oxycodone [From PERCOCET] Allergy (Mild, Verified 10/06/23 11:44) RASH Sulfa (Sulfonamide Antibiotics) [Sulfa (Sulfonamides)] Allergy (Mild, Verified 10/06/23 11:44) RASH citalopram [CITALOPRAM] Adverse Reaction (Intermediate, Verified 10/06/23 11:44) SHAKING,HYPOGLYCEMIA ibuprofen [IBUPROFEN] Adverse Reaction (Intermediate, Verified 10/06/23 11:44) GI UPSET meperidine [From Demerol] Adverse Reaction (Mild, Verified 10/06/23 11:44) VOMITING JALAPENO PEPPERS Allergy (Severe, Uncoded 05/23/23 11:11) THROAT SWELLS Shellfish Allergy (Severe, Uncoded 05/23/23 11:11) THROAT SWELLS HPI HPI Diarrhea/Constipation: Details: LAST VISIT GERD (gastroesophageal reflux disease) IBS (irritable colon syndrome) Constipation Plan Patient will continue taking Pepcid daily. Discussed with patient avoiding dietary triggers and late night snacking. Staying upright for minimal 3 hours after meals discussed with patient. Colonoscopy will be due in October of 2024, sooner if clinically necessary. Patient denies any melena, hematochezia, unintentional weight loss or ribbon like stools. Continue taking Colace. Patient will return in the office in 6 months, sooner on as needed basis. Patient is agreeable to this plan and verbalizes understanding of instructions. She was given the opportunity to ask questions and all questions answered ? Thank you for allowing me to participate in her care Medications Refilled docusate sodium 100 mg PO DAILY 90 caps 0RF K59.00 famotidine (Pepcid) 20 mg PO DAILY 90 tabs 3RF K21.9 TODAY'S VISIT Patient is here today for follow-up. Patient is accompanied by her . Patient reports that couple months ago she had episode of TIA and was admitted to the hospital. Patient states that she was unable to speak appropriately when she was having conversation with her . He noticed that and call the daughter who then brought her to the hospital. Patient was admitted, CT scan of the head was done, patient was placed on clopidogrel and was discharged to [facility]. Patient did not want to go to rehab and ask her to bring her home. Ever since patient has been home, feeling well. Denies any abdominal pain or discomfort. Occasional constipation but then diarrhea depending on what she eats. Patient states that she is drinking fluids. No weight loss since last visit. Patient denies melena, hematochezia. Patient reports that she is taking Colace to help her move her bowels and famotidine daily. Her symptoms of acid reflux are suppressed for the most part. Patient reports to have good appetite. Denies any nausea or vomiting. [facility] Medical History (Updated 10/06/23 @ 12:[address] [facility]) CVA (cerebral vascular accident) PONV (postoperative nausea and vomiting) Anxiety Hx of renal calculi Diabetes 1.5, managed as type 2 Hypothyroid IBS (irritable colon syndrome) GERD (gastroesophageal reflux disease) Surgical History Hx of lithotripsy Hx of cystoscopy History of esophagogastroduodenoscopy (EGD) History of hysterectomy History of colonoscopy Family History Father Hx of tuberculosis Mother No problems noted. Daughter Colon adenocarcinoma Social History Household Members: Spouse Alcohol intake: never Patient Tobacco Use Status: Never used Tobacco Review of Systems Const Denies weight gain and Denies weight loss ENT Reports no additional complaints, Denies dysphagia and Denies odynophagia Card Reports no additional complaints Resp Reports no additional complaints GI Denies abdominal pain, Denies belching, Denies melena, Denies bloating, Denies change in bowel habits, Denies dysphagia, Denies excessive flatus, Denies dyspepsia, Denies heartburn, Denies diarrhea, Reports loose stools, Denies nausea, Denies odynophagia and Denies vomiting Reports no additional complaints Musc Reports no additional complaints Neuro Reports no additional complaints Psych Reports no additional complaints Endo Reports no additional complaints Physical Exam Vital Signs: Last Vital Signs Pulse 71 10/06/23 11:46 BP 119/69 10/06/23 11:46 BMI result Body Mass Index 23.0 Const General: healthy appearing, no acute distress and well developed Nutritional Appearance: well nourished Orientation/consciousness: patient oriented x3 Resp Effort & Inspection: normal respiratory effort, able to speak in complete sentences, no tracheal deviation and symmetric chest movement Auscultation: clear to auscultation bilaterally Cardio Rate: regular rate GI Inspection: Yes normal to inspection and No distended Palpation (GI): Soft to palpation, not firm, nontender and No hepatosplenomegaly present Auscultation: normal bowel sounds General: Yes no CVA tenderness Back/Spine/Pelvis Back: no CVA tenderness Skin General skin exam: elasticity normal, turgor normal and dry skin Neuro General: patient oriented x3 Psych Appearance: grossly normal Mental Status: mental status grossly normal Assessment & Plan Assessment & Plan (1) GERD (gastroesophageal reflux disease): Code(s): K21.9 - Gastro-esophageal reflux disease without esophagitis Category: Medical Qualifiers: Esophagitis presence: without esophagitis Qualified Code(s): K21.9 - Gastro-esophageal reflux disease without esophagitis (2) IBS (irritable colon syndrome): Code(s): K58.9 - Irritable bowel syndrome without diarrhea Category: Medical Qualifiers: Irritable bowel syndrome type: with both diarrhea and constipation Qualified Code(s): K58.2 - Mixed irritable bowel syndrome (3) Constipation: Code(s): K59.00 - Constipation, unspecified Qualifiers: Constipation type: slow transit constipation Qualified Code(s): K59.01 - Slow transit constipation Plan Patient will increase fiber in her diet to help with diarrhea on the days when she has loose stools. Continue Pepcid. Avoid dietary triggers and late night snacking. Avoid constipation. Patient is on Plavix. We will get records from [facility]. Patient will follow-up in our office in 6 months. She will call if she will have any GI concerning symptoms. Both patient and her are agreeable to plan of care and verbalizes understanding of instructions. They were given the opportunity to ask questions and all questions answered. Thank you for allowing me to participate in her care Medications: New methylcellulose (laxative) (Citrucel) take it with full glass of water 500 mg PO DAILY 90 tabs 2RF K59.00 - Constipation, unspecified Coding Level of Care Code Est Pt Level 3 (06895) Diagnoses Gastroesophageal reflux disease without esophagitis K21.9 Esophagitis presence: without esophagitis Irritable bowel syndrome with both constipation and diarrhea K58.2 Irritable bowel syndrome type: with both diarrhea and constipation Slow transit constipation K59.01 Constipation type: slow transit constipation Time Spent (min) 30 Comment 20 minutes spent with patient and additional 10 minutes spent reviewing her records
[2023-10-06 11:46] VITALS: BP 119/69; PULSE 71; BMI 23.0
== END 2023-10-06 12:25 | disposition home or self-care (01) ==
PROVIDERS: PCP Internal Medicine; Visit Provider Nurse Practitioner Family
DX: K21.9 Gastro-esophageal reflux disease without esophagitis (principal); K58.2 Mixed irritable bowel syndrome; K59.01 Slow transit constipation
CPT/HCPCS: 99213

== ENCOUNTER → 2023-10-06 11:10 | Outpatient (BNVA) | payer MEDICARE, SELFPAY | PROVIDERS: PCP Internal Medicine; Visit Provider Nurse Practitioner Family | DX: K21.9 Gastro-esophageal reflux disease without esophagitis (principal); K58.2 Mixed irritable bowel syndrome; K59.01 Slow transit constipation | CPT/HCPCS: 99212 ==

== ENCOUNTER 2024-04-19 11:09 | Outpatient (AMB) | payer MEDICARE, SELFPAY ==
[2024-04-19 11:13] VITALS: BP 140/64; PULSE 70; O2SAT 99; BMI 24.0
--- NOTE | 2024-04-19 11:13 | A.OFFVIS_ITS ---
Vital Signs 04/19/24 11:13 Height 4 ft 10 in Weight 115 lb 1.301 oz BMI 24.0 BP 140/64 H Blood Pressure Location Rt brachial Position Sitting Pulse 70 Pulse Source Pulse Oximeter Pulse Oximetry (%) 99 Oxygen Delivery Method Room Air Intake Visit Reasons: 6 mnth follow up from 04/06 Intake Note: PRESCRIPTIONS LAST GENERATED methylcellulose (laxative) 500 mg tablet?(Citrucel)?500 mg PO DAILY [address] 10/06/23 12:10 (Transmitted) Pt still taking this medication without any difficulties. Relevant Flags or Indicators ? Requires Interior Design Faculty Member? Kvng Huang presents in office today for a scheduled ~6 mos CC; No recent labs, diagnostics. Relevant GI Sx as reported per pt? None ? Hx of any recent surgeries? None Pt does report having a question about intermittent diarrhea which she believes to be a side effect of the newly increased dose of pravastatin to 80 mg. Interior Design Faculty Member Required: No Allergies azithromycin [AZITHROMYCIN] Allergy (Severe, Verified 04/19/24 11:13) THROAT SWELLS codeine [Codeine] Allergy (Severe, Verified 04/19/24 11:13) THROAT SWELLS,RASH monosodium glutamate [MSG] Allergy (Severe, Verified 04/19/24 11:13) throat swelling morphine [Morphine] Allergy (Severe, Verified 04/19/24 11:13) throat swelling,VOMITING nitrofurantoin [NITROFURANTOIN] Allergy (Severe, Verified 04/19/24 11:13) THROAT SWELLS Penicillins Allergy (Severe, Verified 04/19/24 11:13) THROAT SWELLS,RASH sulfamethoxazole [From Bactrim] Allergy (Severe, Verified 04/19/24 11:13) THROAT SWELLS,RASH trimethoprim [From Bactrim] Allergy (Severe, Verified 04/19/24 11:13) THROAT SWELLS,RASH fluticasone [FLUTICASONE] Allergy (Intermediate, Verified 04/19/24 11:13) BLOOD IN EYES levofloxacin [LEVOFLOXACIN] Allergy (Intermediate, Verified 04/19/24 11:13) HYPOGLYCEMIA, drop blood sugars amoxicillin [Amoxicillin] Allergy (Mild, Verified 04/19/24 11:13) RASH atorvastatin [From Lipitor] Allergy (Mild, Verified 04/19/24 11:13) RASH celecoxib [From Celebrex] Allergy (Mild, Verified 04/19/24 11:13) RASH erythromycin base [From E.E.S. 400] Allergy (Mild, Verified 04/19/24 11:13) RASH oxycodone [From PERCOCET] Allergy (Mild, Verified 04/19/24 11:13) RASH Sulfa (Sulfonamide Antibiotics) [Sulfa (Sulfonamides)] Allergy (Mild, Verified 04/19/24 11:13) RASH citalopram [CITALOPRAM] Adverse Reaction (Intermediate, Verified 04/19/24 11:13) SHAKING,HYPOGLYCEMIA ibuprofen [IBUPROFEN] Adverse Reaction (Intermediate, Verified 04/19/24 11:13) GI UPSET meperidine [From Demerol] Adverse Reaction (Mild, Verified 04/19/24 11:13) VOMITING JALAPENO PEPPERS Allergy (Severe, Uncoded 05/23/23 11:11) THROAT SWELLS Shellfish Allergy (Severe, Uncoded 05/23/23 11:11) THROAT SWELLS HPI HPI 6 mnth follow up from 04/06: Details: LAST VISIT: GERD (gastroesophageal reflux disease) IBS (irritable colon syndrome) Constipation Plan Patient will increase fiber in her diet to help with diarrhea on the days when she has loose stools. Continue Pepcid. Avoid dietary triggers and late night snacking. Avoid constipation. Patient is on Plavix. We will get records from [facility]. Patient will follow-up in our office in 6 months. She will call if she will have any GI concerning symptoms. Both patient and her are agreeable to plan of care and verbalizes understanding of instructions. They were given the opportunity to ask questions and all questions answered. ? Thank you for allowing me to participate in her care Medications New methylcellulose (laxative) (Citrucel) take it with full glass of water 500 mg PO DAILY 90 tabs 2RF K59.00 TODAY'S VISIT Patient is here today for follow-up. Patient reports that since last time I have seen her she has been feeling well. Occasional postprandial loose stools without blood or mucus. Patient does report that she takes her fiber supplement daily. Patient was placed on pravastatin and thinks that maybe that is why she has loose stools. Patient is also on metformin that is the reason that she could or she is not taking enough fiber. Patient denies nausea or vomiting. Patient remained stable weight, she actually gained 4 lb since last visit. Patient reports that she has good appetite. Denies any other GI concerning symptoms other than occasional loose stools. Patient will be due to go for colonoscopy in October of 2024. [facility] History CVA (cerebral vascular accident) PONV (postoperative nausea and vomiting) Anxiety Hx of renal calculi Diabetes 1.5, managed as type 2 Hypothyroid IBS (irritable colon syndrome) GERD (gastroesophageal reflux disease) Surgical History Hx of lithotripsy Hx of cystoscopy History of esophagogastroduodenoscopy (EGD) History of hysterectomy History of colonoscopy Family History Father Hx of tuberculosis Mother No problems noted. Daughter Colon adenocarcinoma Social History Household Members: Spouse Alcohol intake: never Patient Tobacco Use Status: Never used Tobacco Review of Systems Const Denies weight gain and Denies weight loss ENT Reports no additional complaints, Denies dysphagia and Denies odynophagia Card Reports no additional complaints Resp Reports no additional complaints GI Denies abdominal pain, Denies belching, Denies melena, Denies bloating, Denies change in bowel habits, Denies dysphagia, Denies excessive flatus, Denies dyspepsia, Denies heartburn, Denies diarrhea, Reports loose stools (Occasional), Denies nausea, Denies odynophagia and Denies vomiting Reports no additional complaints Musc Reports no additional complaints Neuro Reports no additional complaints Psych Reports no additional complaints Endo Reports no additional complaints Physical Exam Vital Signs: Last Vital Signs Pulse 70 04/19/24 11:13 BP 140/64 H 04/19/24 11:13 Pulse Ox 99 04/19/24 11:13 Oxygen Delivery Method Room Air 04/19/24 11:13 BMI result Body Mass Index 24.0 Const General: healthy appearing, no acute distress and well developed Nutritional Appearance: well nourished Orientation/consciousness: patient oriented x3 Resp Effort & Inspection: normal respiratory effort, able to speak in complete sentences, no tracheal deviation and symmetric chest movement Auscultation: clear to auscultation bilaterally Cardio Rate: regular rate GI Inspection: Yes normal to inspection and No distended Palpation (GI): Soft to palpation, not firm, nontender and No hepatosplenomegaly present Auscultation: normal bowel sounds General: Yes no CVA tenderness Back/Spine/Pelvis Back: no CVA tenderness Skin General skin exam: elasticity normal, turgor normal and dry skin Neuro General: patient oriented x3 Psych Appearance: grossly normal Mental Status: mental status grossly normal Assessment & Plan Assessment & Plan (1) GERD (gastroesophageal reflux disease): Code(s): K21.9 - Gastro-esophageal reflux disease without esophagitis Category: Medical Qualifiers: Esophagitis presence: without esophagitis Qualified Code(s): K21.9 - Gastro-esophageal reflux disease without esophagitis (2) IBS (irritable colon syndrome): Code(s): K58.9 - Irritable bowel syndrome, unspecified Category: Medical Qualifiers: Irritable bowel syndrome type: with both diarrhea and constipation Qualified Code(s): K58.2 - Mixed irritable bowel syndrome (3) Constipation: Code(s): K59.00 - Constipation, unspecified Qualifiers: Constipation type: slow transit constipation Qualified Code(s): K59.01 - Slow transit constipation Plan Continue Citrucel. Continue Pepcid. Increase fluid intake and activity to promote better bowel motility. Patient can also take [id number] fiber wi th probiotics. Continue avoiding lactose and gluten. Patient will follow-up in our office in 6 months. She will call if she will any GI concerning symptoms. She is agreeable to plan of care and verbalizes understanding of instructions. She was given the opportunity to ask questions and all questions answered. Thank you for allowing me to participate in her care Coding Level of Care Code Est Pt Level 3 (24991) Diagnoses Gastroesophageal reflux disease without esophagitis K21.9 Esophagitis presence: without esophagitis Irritable bowel syndrome with both constipation and diarrhea K58.2 Irritable bowel syndrome type: with both diarrhea and constipation Slow transit constipation K59.01 Constipation type: slow transit constipation Time Spent (min) 30 Comment 20 minutes spent with patient and additional 10 minutes spent reviewing her records
== END 2024-04-19 11:42 | disposition home or self-care (01) ==
PROVIDERS: PCP Internal Medicine; Visit Provider Nurse Practitioner Family
DX: K21.9 Gastro-esophageal reflux disease without esophagitis (principal); K58.2 Mixed irritable bowel syndrome; K59.01 Slow transit constipation
CPT/HCPCS: 99213

== ENCOUNTER → 2024-04-19 11:09 | Outpatient (BNVA) | payer MEDICARE, SELFPAY | PROVIDERS: PCP Internal Medicine; Visit Provider Nurse Practitioner Family | DX: K21.9 Gastro-esophageal reflux disease without esophagitis (principal); K58.2 Mixed irritable bowel syndrome; K59.01 Slow transit constipation | CPT/HCPCS: 99212 ==

== ENCOUNTER 2024-12-31 12:50 | Outpatient (AMB) | payer MEDICARE, SELFPAY ==
--- NOTE | 2024-12-31 12:51 | MHC.OFFVIS ---
Vital Signs 12/31/24 12:55 Height 4 ft 10 in Weight 119 lb BMI 24.9 BP 146/68 H Blood Pressure Location Rt brachial Position Sitting Pulse 76 Pulse Source Pulse Oximeter Pulse Oximetry (%) 97 Oxygen Delivery Method Room Air Intake Visit Reasons: 6m Intake Note: Est pt for mgmt of GERD + IBS. CC; Pt denies any GI sx or concerns since last visit; however, she is having trouble recalling medications which she has taken for a while and reports that she is having an acute difficulty with memory regression. Regulatory Attorney Required: No Accompanied by: Self / Same As Patient Allergies azithromycin (AZITHROMYCIN) Allergy (Severe, Verified 12/31/24 12:51) THROAT SWELLS codeine (Codeine) Allergy (Severe, Verified 12/31/24 12:51) THROAT SWELLS,RASH monosodium glutamate (MSG) Allergy (Severe, Verified 12/31/24 12:51) throat swelling morphine (Morphine) Allergy (Severe, Verified 12/31/24 12:51) throat swelling,VOMITING nitrofurantoin (NITROFURANTOIN) Allergy (Severe, Verified 12/31/24 12:51) THROAT SWELLS Penicillins Allergy (Severe, Verified 12/31/24 12:51) THROAT SWELLS,RASH sulfamethoxazole (From Bactrim) Allergy (Severe, Verified 12/31/24 12:51) THROAT SWELLS,RASH trimethoprim (From Bactrim) Allergy (Severe, Verified 12/31/24 12:51) THROAT SWELLS,RASH fluticasone (FLUTICASONE) Allergy (Intermediate, Verified 12/31/24 12:51) BLOOD IN EYES levofloxacin (LEVOFLOXACIN) Allergy (Intermediate, Verified 12/31/24 12:51) HYPOGLYCEMIA, drop blood sugars amoxicillin (Amoxicillin) Allergy (Mild, Verified 12/31/24 12:51) RASH atorvastatin (From Lipitor) Allergy (Mild, Verified 12/31/24 12:51) RASH celecoxib (From Celebrex) Allergy (Mild, Verified 12/31/24 12:51) RASH erythromycin base (From E.E.S. 400) Allergy (Mild, Verified 12/31/24 12:51) RASH oxycodone (From PERCOCET) Allergy (Mild, Verified 12/31/24 12:51) RASH Sulfa (Sulfonamide Antibiotics) (Sulfa (Sulfonamides)) Allergy (Mild, Verified 12/31/24 12:51) RASH citalopram (CITALOPRAM) Adverse Reaction (Intermediate, Verified 12/31/24 12:51) SHAKING,HYPOGLYCEMIA ibuprofen (IBUPROFEN) Adverse Reaction (Intermediate, Verified 12/31/24 12:51) GI UPSET meperidine (From Demerol) Adverse Reaction (Mild, Verified 12/31/24 12:51) VOMITING JALAPENO PEPPERS Allergy (Severe, Uncoded 12/31/24 12:51) THROAT SWELLS Shellfish Allergy (Severe, Uncoded 12/31/24 12:51) THROAT SWELLS HPI HPI 6m: Details: LAST VISIT GERD (gastroesophageal reflux disease) IBS (irritable colon syndrome) Constipation Plan Continue Citrucel. Continue Pepcid. Increase fluid intake and activity to promote better bowel motility. Patient can also take [id number] fiber with probiotics. Continue avoiding lactose and gluten. Patient will follow-up in our office in 6 months. She will call if she will any GI concerning symptoms. She is agreeable to plan of care and verbalizes understanding of instructions. She was given the opportunity to ask questions and all questions answered. ? TODAY'S VISIT: Patient is here today for follow-up and to discuss going for colonoscopy. Last colonoscopy in October of 2021, history of tubular adenoma and recommendation was to repeat colonoscopy in 3 years. Patient reports that she does not want to go for colonoscopy. Patient is anxious about anesthesia. Patient is taking Pepcid daily. Reports that she is moving her bowels without any issues. Denies any melena, hematochezia, unintentional weight loss or ribbon like stools. Patient denies any dyspepsia, dysphagia or odynophagia. Patient reports that she is worried that she is being forgetful. Patient denies any cardiac or respiratory symptoms. Patient denies any presyncope or syncope episodes. History of mechanical fall few months ago, hospitalized and then patient was discharged to rehab facility [facility] Medical History CVA (cerebral vascular accident) PONV (postoperative nausea and vomiting) Anxiety Hx of renal calculi Diabetes 1.5, managed as type 2 Hypothyroid IBS (irritable colon syndrome) GERD (gastroesophageal reflux disease) Surgical History Hx of lithotripsy Hx of cystoscopy History of esophagogastroduodenoscopy (EGD) History of hysterectomy History of colonoscopy Family History Father Hx of tuberculosis Mother No problems noted. Daughter Colon adenocarcinoma Social History Household Members: Spouse Alcohol intake: never Patient Tobacco Use Status: Never used Tobacco Review of Systems Const Denies weight gain and Denies weight loss ENT Reports no additional complaints, Denies dysphagia and Denies odynophagia Card Reports no additional complaints Resp Reports no additional complaints GI Denies abdominal pain, Denies belching, Denies melena, Denies bloating, Denies change in bowel habits, Denies dysphagia, Denies excessive flatus, Denies dyspepsia, Denies heartburn, Denies diarrhea, Reports loose stools (Occasional), Denies nausea, Denies odynophagia and Denies vomiting Reports no additional complaints Musc Reports no additional complaints Neuro Reports no additional complaints Psych Reports no additional complaints Endo Reports no additional complaints Physical Exam Const General: healthy appearing, no acute distress and well developed Nutritional Appearance: well nourished Orientation/consciousness: patient oriented x3 Resp Effort & Inspection: normal respiratory effort, able to speak in complete sentences, no tracheal deviation and symmetric chest movement Auscultation: clear to auscultation bilaterally Cardio Rate: regular rate GI Inspection: Yes normal to inspection and No distended Palpation (GI): Soft to palpation, not firm, nontender and No hepatosplenomegaly present Auscultation: normal bowel sounds General: Yes no CVA tenderness Back/Spine/Pelvis Back: no CVA tenderness Skin General skin exam: elasticity normal, turgor normal and dry skin Neuro General: patient oriented x3 Psych Appearance: grossly normal Mental Status: mental status grossly normal Assessment & Plan Assessment & Plan (1) GERD (gastroesophageal reflux disease): Code(s): K21.9 - Gastro-esophageal reflux disease without esophagitis Category: Medical Qualifiers: Esophagitis presence: without esophagitis Qualified Code(s): K21.9 - Gastro-esophageal reflux disease without esophagitis (2) IBS (irritable colon syndrome): Code(s): K58.9 - Irritable bowel syndrome, unspecified Category: Medical Qualifiers: Irritable bowel syndrome type: with both diarrhea and constipation Qualified Code(s): K58.2 - Mixed irritable bowel syndrome (3) Screen for colon cancer: Code(s): Z12.11 - Encounter for screening for malignant neoplasm of colon Plan Patient will continue taking famotidine daily. Avoid dietary triggers and late night snacking. Staying upright for minimum 3 hours after meals discussed with patient. Patient agrees to go for colonoscopy. What to expect before during and after procedure discussed with patient. Patient is to call our office if she will have any GI concerning symptoms. Split MiraLax prep and Dulcolax sent to pharmacy. Patient takes Lantus and she will take half of the prescribed dose 2 nights and 1 night before procedure. Stressed importance of good bowel prep and clear liquid diet day before procedure. Patient will follow-up after the procedure. Patient is agreeable to this plan and verbalizes understanding of instructions. She was given the opportunity to ask questions and all questions answered. Thank you for allowing me to participate in her care Medications: New polyethylene glycol 3350 (Miralax) As directed by gastroenterology department at [facility] 238 grams PO ONCE 238 grams 0RF Z12.11 - Encounter for screening for malignant neoplasm of colon Refilled famotidine 20 mg PO DAILY 90 tabs 3RF K21.9 - Gastro-esophageal reflux disease without esophagitis Coding Level of Care Code Est Pt Level 3 (02804) Diagnoses Gastroesophageal reflux disease without esophagitis K21.9 Esophagitis presence: without esophagitis Irritable bowel syndrome with both constipation and diarrhea K58.2 Irritable bowel syndrome type: with both diarrhea and constipation Screen for colon cancer Z12.11 Time Spent (min) 30 Comment 20 minutes spent with patient and additional 10 minutes spent reviewing her records
--- OUTSIDE RECORDS SUMMARY | 2024-12-31 12:52 | XMS_ITS ---
Author Organization [facility] on Care Team Providers Care Corporate Real Estate Specialist Name Role Phone Aylin Mirza Unavailable Unavailable Jose Urbina Unavailable Unavailable Swapna Almaraz Unavailable Unavailable Care Team Name Role Address Phone Organization Dates Aylin Mirza PCP [address] [place], [address], [place] (Office): : [facility] 09/15/2023 - 09/15/2023 Jose Urbina [facility] [place], [address], [place] (Office): [facility] 09/15/2023 - 09/15/2023 Swapna Almaraz [address] [place], [address], [place] (Office): : [facility] 09/15/2023 - 09/15/2023 Mental Status Section Date Assessment Total Score Description 09/15/2023 CAM 0 No delirium ind icated Problems Problem # Description Date of onset Resolved Date Code CodeSystem Concern Status 1 ANXIETY DISORDER, UNSPECIFIED 09/15/[address] active 2 CEREBRAL INFARCTION, UNSPECIFIED 09/15/[address] active 3 ESSENTIAL (PRIMARY) HYPERTENSION 09/15/[address] active 4 HYPERLIPIDEMIA, UNSPECIFIED 09/15/[address] active 5 HYPOTHYROIDISM, UNSPECIFIED 09/15/[address] active 6 OTHER ASTHMA 09/15/[address] acti ve 7 OTHER SPECIFIC JOINT DERANGEMENTS OF UNSPECIFIED JOINT, NOT ELSEWHERE CLASSIFIED 09/15/[address] active 8 TYPE 2 DIABETES MELLITUS WITHOUT COMPLICATIONS 09/15/[address] active 9 URINARY TRACT INFECTION, SITE NOT SPECIFIED 09/15/[address] active Reason for Referral No Reasons for Referral Entered Social History Social History Observation Description Start Date End Date Code Code System Current Smoking Status Tobacco smoking consumption unknown 471432109 SNOMED CT Sex Assigned At Female 1945 [address]-[address] [facility] Gender Identity
--- OUTSIDE RECORDS SUMMARY | 2024-12-31 12:52 | XMS_ITS | Clinical Summary ---
Author Organization [facility] Address [address] [place] [address] Phone Care Team Providers Care Mechanical Spreader Operator Name Role Phone Sukhi Dukes MD Primary Care Provider + Social History Tobacco Use Types Packs/Day Years Used Date Smoking Tobacco: Never Assessed Education Answer Date Recorded Are you interested in more education? Not on pratik e 08/17/2024 Are you concerned about learning? Not on file 08/17/2024 No 08/17/2024 No 08/17/2024 Digital Access Answer Date Recorded No 08/17/2024 No 08/17/2024 Reliable internet access at home? Not on file 08/17/2024 Device with a working camera? Not on file Comments Unknown Sex and Gender Information Value Date Recorded Sex Assigned at Not on file Legal Sex Female 10:14 AM EDT Gender Identity Not on file Sexual Orientation Not on file Plan of Treatment Not on file Medical Devices Not on file Insurance [place] BLUE REPLACEMENT HEALTH SAF[employer]Y NET FULL MEDICARE PART A & B [facility] MEDICARE PPO BLUE REPLACEMENT HEALTH SAFETY NET FULL MEDICARE PART A & B [facility] MEDICARE PPO [place] [address] [place] [address] FULL MEDICARE PART A & B [facility] MEDICARE PPO BLUE REPLACEMENT Member Subscriber Plan / Payer (Ef fective 2011-Present) Name:Reina Arteaga Relation to Subscriber:Self Name:Reina Arteaga Payer ID:[id number] (NAIC) Type:Medicare Address: [facility] [id number] FULL MEDICARE PART A & B [facility] MEDICARE PPO BLUE REPLACEMENT Member Subscriber Plan / Payer (Ef fective 2011-Present) Name:Reina Arteaga Relation to Subscriber:Self Name:Reina Arteaga Payer ID:[id number] (NAIC) Type:Medicare Address: [facility] [id number] [place] [id number] HEALTH SAFETY NET FULL MEDICARE PART A & B [place] [place] BLUE REPLACEMENT HEALTH SAFETY NET FULL MEDICARE PART A & B Care Teams Mechanical Spreader Operator Relationship Specialty Start Date End Date Sukhi Dukes MD [address] [facility] [address] [place] [id number] PCP - General Internal Medicine 08/17/24 Additional Source Comments The information contained in this document represents components of the legal health record. It is not the complete legal health record.[facility]
[2024-12-31 12:55] VITALS: BP 146/68; PULSE 76; O2SAT 97; BMI 24.9
== END 2024-12-31 13:43 | disposition home or self-care (01) ==
LOC: HO.HGI 12:50
PROVIDERS: PCP Internal Medicine; Visit Provider Nurse Practitioner Family
DX: K21.9 Gastro-esophageal reflux disease without esophagitis (principal); K58.2 Mixed irritable bowel syndrome
CPT/HCPCS: 99213

== ENCOUNTER → 2024-12-31 12:50 | Outpatient (BNVA) | payer MEDICARE, SELFPAY | PROVIDERS: PCP Internal Medicine; Visit Provider Nurse Practitioner Family | DX: Z01.818 Encounter for other preprocedural examination (principal); K21.9 Gastro-esophageal reflux disease without esophagitis; K58.2 Mixed irritable bowel syndrome | CPT/HCPCS: 99212 ==